=== PATIENT | female | born 1980 | race Caucasian/White ===

== ENCOUNTER 2017-10-23 05:55 | Inpatient (IN) | payer OTHER ==
[~2017-10-23] VITALS: Ht 157.5 cm; Wt 3.2 kg
[2017-10-23] MEDS ORDERED: SYNTHROID75 MCG PO (06:53)
[2017-10-23] MEDS ORDERED: PRENATAL TABLE1 EAC2 PO (06:54)
== END 2017-10-25 14:03 | DRG 766 ==
LOC: LDR 05:55 → OB/GYN 05:55 → O/R 07:00 → OB/GYN 12:02
PROVIDERS: Specialist
PROC: 0UT70ZZ Resection of Bilateral Fallopian Tubes, Open Approach (ICD-10-PCS; 2017-10-23)
PROC: 0UB90ZZ Excision of Uterus, Open Approach (ICD-10-PCS; 2017-10-23)
PROC: 4A1HXCZ Monitoring of Products of Conception, Cardiac Rate, External Approach (ICD-10-PCS; 2017-10-23)
PROC: 10D00Z1 Extraction of Products of Conception, Low, Open Approach (ICD-10-PCS; principal; 2017-10-23 07:15)
DX: O34.211 Maternal care for low transverse scar from previous cesarean delivery (principal); Z3A.39 39 weeks gestation of pregnancy; Z37.0 Single live birth; Z30.2 Encounter for sterilization; Z64.1 Problems related to multiparity; O34.13 Maternal care for benign tumor of corpus uteri, third trimester; D25.9 Leiomyoma of uterus, unspecified; O99.283 Endocrine, nutritional and metabolic diseases complicating pregnancy, third trimester; E03.8 Other specified hypothyroidism

== ENCOUNTER → 2021-08-08 | Outpatient (CLI) | payer OTHER ==
[~2021-08-08] MED LIST: PRENATAL TABLE1 EAC2 PO; SYNTHROID75 MCG PO
== END | disposition home or self-care (01) ==
LOC: NUCLEAR 13:00
PROVIDERS: ATTEND Internal Medicine Sports Medicine
DX: C73 Malignant neoplasm of thyroid gland (principal); E89.0 Postprocedural hypothyroidism
CPT/HCPCS: 79005; A9517

== ENCOUNTER 2021-08-12 13:49 | Outpatient (CLI) | payer OTHER | END 2021-08-12 13:50 | disposition home or self-care (01) | LOC: NUCLEAR 13:49 | PROVIDERS: ATTEND Internal Medicine Sports Medicine | DX: C73 Malignant neoplasm of thyroid gland (principal); E89.0 Postprocedural hypothyroidism | CPT/HCPCS: 78018; A9548 ==

== ENCOUNTER 2022-08-25 13:30 | Outpatient (CLI) | payer OTHER | END 2022-08-25 13:40 | disposition home or self-care (01) | LOC: NUCLEAR 13:30 | PROVIDERS: ATTEND Internal Medicine Sports Medicine | DX: C73 Malignant neoplasm of thyroid gland (principal) | CPT/HCPCS: 78306; A9528 ==